=== PATIENT | female | born 1990 | race Caucasian/White ===

== ENCOUNTER 2019-06-03 18:59 | Emergency (ER) | payer OTHER ==
[~2019-06-03] VITALS: Ht 157 cm; Wt 62.0 kg
[2019-06-03] MEDS ORDERED: ESTROPIPATE (19:23)
[2019-06-03] MEDS ORDERED: ONDANSETRON 4 MG (ZOFRAN) ORAL DISSOLVE TAB SL ONE (20:00)
[2019-06-03] MEDS ORDERED: ONDA4TAB11 SL (20:04)
--- NOTE | 2019-06-03 20:06 | ED Head Injury ---
General Chief Complaint: Trauma-Non Activation Stated Complaint: FELL Nursing Triage Note: PT STATES SHE FELL AND HIT HER HEAD ON SATURDAY, SAME LEVEL HITTING A HOPE CHEST LEAVING A SMALL CUT, NO LOC. CC OF CONTINUED HEADACHE, LIGHTHEADED, AND NAUSEA. Source: patient Exam Limitations: no limitations History of Present Illness Date Seen by Provider: Jun 03, 2019 Time Seen by Provider: 19:40 Initial Comments This 28-year-old young lady presents to the emergency room with complaints of headache, nausea, and lightheadedness after striking her head on a hope chest on May 30. She was playing with her dog when she slipped and fell. There was no loss of consciousness. She struck her head on the left parietal region. She states there was a small laceration that is no longer evident on exam. By Saturday she was having severe headaches and nausea. Motion and bending over exacerbated the symptoms. She went to [facility] to be evaluated. She received an injection of Toradol which did not really help her much. She was then prescribed Fioricet which is also not proving to be very helpful. She denies any vision changes or focal deficits. She has spent the last 2 days working at a computer. She has not observed cognitive rest. 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" (Allergy, Severe, 06/04/19) Home Medications Ondansetron 4 Mg Tab.rapdis, 4 MG SL Q4H PRN for NAUSEA/VOMITING Prescribed by: JASMINA HALL on 06/03/192003 Patient Home Medication List Home Medication List Reviewed: Yes Review of Systems Review of Systems Constitutional: no symptoms reported Eyes: No Symptoms Reported Ears, Nose, Mouth, Throat: no symptoms reported Respiratory: no symptoms reported Cardiovascular: no symptoms reported Gastrointestinal: see HPI Genitourinary: no symptoms reported : No Musculoskeletal: no symptoms reported Skin: see HPI Psychiatric/Neurological: See HPI Endocrine: No Symptoms Reported Hematologic/Lymphatic: No Symptoms Reported Past Irdnohf-Tjqvlg-Vgyuar Hx Past Med/Social Hx: Reviewed and Corrections made Patient Social History Alcohol Use: Denies Use Recreational Drug Use: No Smoking Status: Never a Smoker Recent Foreign Travel: No Contact w/Someone Who Travel: No Recent Infectious Disease Expo: No Recent Hopitalizations: No Physical Abuse: No Sexual Abuse: No Fear: No Seasonal Allergies Seasonal Allergies: Yes Past Medical History Surgeries: Yes (UMBILICAL HERNIA, laparoscopic for endometriosis) Bladder Surgery, Section, Hysterectomy Respiratory: No Cardiac: No Neurological: No : No Reproductive Disorders: Yes Female Reproductive Disorders: Endometriosis, 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 oz. kg; 25.00 BMI Method: General Appearance: WD/WN, no apparent distress HEENT: PERRL/EOMI, normal ENT inspection, pharynx normal Neck: normal inspection Cardiovascular: regular rate, rhythm, no edema, no murmur Respiratory: lungs clear, normal breath sounds, no respiratory distress Extremities: normal inspection Psychiatric: alert, oriented x 3 Crainal Nerves: normal hearing, normal speech, PERRL Coordination/Gait: normal finger to nose, normal gait Motor/Sensory: no motor deficit, no sensory deficit Skin: normal color, warm/dry Progress/Results/Core Measures Results/Orders My Orders Orders - JASMINA SOSA MD Ondansetron Oral Dissolve Tab (Zofran (06/03/19 20:00) Medications Given in ED Vital Signs/I&O Blood Pressure Mean: 105 Progress Progress Note : Progress Note Nausea was treated with Zofran. There were no focal deficits and CT imaging was not felt appropriate under these circumstances. We discussed appropriate precautions to follow during the concussion recovery. Departure Impression Primary Impression: Concussion without loss of consciousness Qualified Codes: S06.0X0A - Concussion without loss of consciousness, initial encounter Additional Impression: Nausea Disposition: 01 HOME, SELF-CARE Condition: Improved Departure-Patient Inst. Decision time for Depature: 20:02 Patient Instructions: Concussion in Adults Add. Discharge Instructions: Stay well-hydrated by drinking plenty of clear liquids. Gradually advance your diet with small quantities of bland food as tolerated. For pain you may take ibuprofen up to 600 mg every 6 hours as needed and/or Tylenol (acetaminophen) up to 1000 mg every 6 hours as needed. Use Zofran as prescribed for nausea and vomiting. Cognitive and physical rest is very important over the next 2-3 days. Limit screening time, noises, physical activity, and other cognitive activities. If any activity causes worsening of concussion symptoms, stop that activity and rest. Avoid any activity that could potentially cause head injury such as use of heights, contact sports, bike riding, etc. for at least 7 days after all concussion symptoms have resolved. Please follow-up with your primary care provider next week for a recheck. Return to the emergency room if you have worsening symptoms despite taking the measures above. All discharge instructions reviewed with patient and/or family. Voiced understanding. Scripts Ondansetron (Ondansetron Odt) 4 Mg Tab.rapdis 4 MG SL Q4H PRN for NAUSEA/VOMITING, #10 TAB Prov: JASMINA SOSA MD 06/03/19 Work/School Note: Work Release Form Date Seen in the Emergency Department: Jun 03, 2019 Return to Work: Jun 06, 2019 Other Restrictions Listed Below: Stop any activity that causes worsening concussion symptoms and rest JASMINA SOSA MD Jun 03, 2019 20:06
[2019-06-03 20:15] VITALS: BP 132/92
== END 2019-06-03 20:14 | disposition home or self-care (01) ==
LOC: ER 19:01 → MERGE 19:01 → ER 20:14
DX: S06.0X0A Concussion without loss of consciousness, initial encounter (principal); Z90.710 Acquired absence of both cervix and uterus; Z87.442 Personal history of urinary calculi; W01.198A Fall on same level from slipping, tripping and stumbling with subsequent striking against other object, initial encounter
CPT/HCPCS: 99283

== ENCOUNTER 2022-06-03 20:40 | Emergency (ER) | payer OTHER ==
[~2022-06-03] VITALS: Ht 157.5 cm; Wt 59.4 kg
[~2022-06-03 20:40] MED LIST: ESTROPIPATE; ONDA4TAB11 SL
--- NOTE | 2022-06-03 20:58 | ED Upper Extremity ---
General Chief Complaint: Upper Extremity Stated Complaint: RIGHT HAND LAC Source: patient Exam Limitations: no limitations (BAYRON GRIDER APRN) History of Present Illness Date Seen by Provider: Jun 03, 2022 Time Seen by Provider: 20:55 Initial Comments Patient is a 31 yo F who presents to the ED with a laceration and injury to her R thumb that occurred while she was carrying a dresser. Patient states she was seen at an urgent care where they referred her to an ED for further evaluation. The injury occurred around 1400 today. Patient states she initially had difficulty getting the wound to stop bleeding. She is unsure when she last had a tetanus immunization. She took a dose of ibuprofen earlier today. She denies any tingling or numbness to the affected hand/digit. She denies any other pain/injury. She states she has difficulty flexing her R thumb although she is able to partially flex it. Extension remains intact. 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" (Allergy, Severe, 06/04/19) Patient Home Medication List Home Medication List Reviewed: Yes (BAYRON GRIDER APRN) Ondansetron (Ondansetron Odt) 4 Mg Tab.rapdis, 4 MG SL Q4H PRN for NAUSEA/VOMITING Prescribed by: JASMINA HALL on 06/03/192003 [Estropipate] , (Reported) Entered as Reported by: GERARD ROQUE on 06/03/191922 Review of Systems Constitutional: no symptoms reported EENTM: no symptoms reported Respiratory: no symptoms reported Cardiovascular: no symptoms reported Gastrointestinal: no symptoms reported Musculoskeletal: other (right thumb pain) Skin: other (laceration) (BAYRON GRIDER APRN) Past Nltlnqu-Okenwp-Hkmyfa Hx Patient Social History Tobacco Use?: No Use of E-Cig and/or Vaping dev: No Substance use?: No Alcohol Use?: No Pt feels they are or have been: No (BAYRON GRIDER APRN) Immunizations Up To Date Influenza Vaccine Up-to-Date: No; Not Current First/Initial COVID19 Vaccinat: YES Second COVID19 Vaccination Robbie: YES COVID19 Vaccine Skip Loader: MODERNA (BAYRON GRIDER APRN) Seasonal Allergies Seasonal Allergies: Yes (BAYRON GRIDER APRN) Past Medical History Surgery/Hospitalization HX: C SECT X 3, FULL HYST Surgeries: Yes (UMBILICAL HERNIA, laparoscopic for endometriosis) Bladder Surgery, Section, Hysterectomy Respiratory: No Cardiac: No Neurological: No Reproductive Disorders: Yes Female Reproductive Disorders: Endometriosis, 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 oz. kg; 25.00 BMI Method: General Appearance: WD/WN, no apparent distress HEENT: PERRL/EOMI, normal ENT inspection Neck: non-tender, full range of motion Cardiovascular: regular rate, rhythm Respiratory: chest non-tender, lungs clear, normal breath sounds Gastrointestinal: normal bowel sounds, non tender, soft Back: normal inspection, no CVA tenderness, no vertebral tenderness Neurologic/Psychiatric: electroplater helper II-XII nml as tested, no motor/sensory deficits, alert, normal mood/affect, oriented x 3 Skin: normal color, warm/dry (BAYRON GRIDER APRN) Progress/Results/Core Measures Results/Orders Medications Given in ED Current Medications Medications Dose Ordered Sig/Amalia Route Start Time Stop Time Status Last Admin Dose Admin Diphtheria/ Tetanus/Acell Pertussis 0.5 ml ONCE ONCE IM 06/03/22 21:30 06/03/22 21:31 DC 06/03/22 21:36 0.5 ML (RONNA,JOSE K DO) Vital Signs/I&O 06/03/22 20:47 Temp 36.9 Pulse 79 Resp 16 B/P (MAP) 130/73 (92) Pulse Ox 100 O2 Delivery Room Air (RONNA,JOSE K DO) Progress Progress Note : Progress Note Patient is nontoxic and well hydrated on exam. There is no apparent extensor/flexor tendon disruption noted on exam. Neurovascular function is intact. The laceration is approximately 1 cm in length and is well approximated. Xrays of the R hand reveal no acute osseous injury. Tetanus was updated. Thumb spica applied for pain control. I offered to close the wound with skin adhesive and patient declined. Discussed follow-up with PCP. Return precautions for urgent symptomology discussed. Patient verbalized understanding. (BAYRON GRIDER APRN) Departure Impression Primary Impression: Laceration of right thumb Qualified Codes: S61.011A - Laceration without foreign body of right thumb without damage to nail, initial encounter Disposition: HOME, SELF-CARE Condition: Stable Departure-Patient Inst. Decision time for Depature: 21:40 (BAYRON GRIDER APRN) Referrals: CHLOÉ ROGERS DO (PCP/Family) Primary Care Physician Patient Instructions: Common Finger Injuries ED ATTENDING PHYSICIAN NOTE: I WAS PHYSICALLY PRESENT ER PHYSICIAN, BUT I WAS NOT INVOLVED IN ANY DECISION MAKING OR ANY CARE OF THIS PATIENT, AND I AM NOT COLLABORATING PHYSICIAN. (JOSE FRIEND DO) BAYRON GRIDER APRN Jun 03, 2022 20:58 JOSE FRIEND DO Jun 03, 2022 23:42
--- NOTE | 2022-06-03 21:16 | Diagnostic Imaging Report ---
EXAM: Hand, right, 3 views. INDICATION: Right hand pain. COMPARISON: None. FINDINGS: No fracture or malalignment. Soft tissue shadows are unremarkable. IMPRESSION: Negative right hand radiographs. Dictated by: Dictated on workstation # [id number]
[2022-06-03] MEDS ORDERED: TETANUS,DIPTH,PERTUSS P/F (BOOSTRIX) 0.5 ML VIAL IM ONE (21:30)
[2022-06-03 22:00] VITALS: BP 118/70
== END 2022-06-03 22:00 | disposition home or self-care (01) ==
LOC: EDUNIT# 20:40 → ER 20:41
DX: S61.011A Laceration without foreign body of right thumb without damage to nail, initial encounter (principal); Z23 Encounter for immunization; X58.XXXA Exposure to other specified factors, initial encounter; Y93.89 Activity, other specified
CPT/HCPCS: 12001; 73130; 90715